=== PATIENT | female | born 1980 | race Caucasian/White ===

== ENCOUNTER 2022-02-06 00:34 | Emergency (ER) | payer BC ==
--- OUTSIDE RECORDS SUMMARY | 2022-02-06 00:36 | XMS REPORT | Continuity of Care Document ---
:1980 Author Organization [facility] Address [facility] [address] [place] [address] Care Team Providers Name Role Phone CERON Attending Clinician Unavailable DHAVAL Attending Clinician Unavailable Problems This patient has no known problems. Allergies, Adverse Reactions, Alerts This patient has no known allergies or adverse reactions. Medications This patient has no known medications. Procedures This patient has no known procedures. Encounters Start End Encounter Admission Attending Care Care Encounter Source Date/Time Date/Time Type Type Clinicians Facility Department ID 2021-05-05 2021-05-[address] [facility] [id number] [place] 00:00:00 00:00:00 AMINA 052 [facility] 2021-04-14 2021-04-14 [facility] [id number] [place] 00:00:00 00:00:00 AMINA 814 [facility] 2021-04-14 2021-04-14 [facility] [id number] [place] 00:00:00 00:00:00 AMINA 751 [facility] 2021-04-08 2021-04-08 [id number] [place] [facility]:00 00:00:00 RAMOS 834 [facility] 2021-04-07 2021-04-07 [facility] [id number] [place] 00:00:00 00:00:00 AMINA 571 Method i 2021-03-27 2021-03-[address] [facility] [id number] [place] 00:00:00 00:00:00 AMINA 731 Method i 2020-12-11 2020-12-11 [facility] [id number] [place] 00:00:00 00:00:00 AMINA 846 Method i 2020-09-25 2020-09-[address] [facility] [id number] [place] 00:00:00 00:00:00 AMINA [address] 2020-08-25 2020-08-[address] [facility] [id number] [place] 00:00:00 00:00:00 AMINA [address] 2020-05-12 2020-05-[address] [facility] [id number] [place] 00:00:00 00:00:00 AMINA [address] Results This patient has no known results.
[2022-02-06 02:21] LABS: Urine Blood Negative (Negative); Urine Glucose Negative (Negative); Urine Protein Negative (Negative)
[2022-02-06 02:51] LABS: Absolute Lymphocytes (CBC) 2.4 K/uL (0.7-4.9); Hematocrit 34.2 % (36.0-45.0); Lymphocytes % 30.7 % (15.3-44.8); MPV 8.6 fL (7.6-11.3); RBC Red Blood Cell Count 3.92 M/uL (3.86-4.86)
[2022-02-06 02:55] LABS: Protime INR 0.98
[2022-02-06 03:10] LABS: Albumin 3.9 g/dL (3.4-5.0); Bilirubin Direct 0.1 mg/dL (0-0.2); Bilirubin Total 0.4 mg/dL (0.2-1.0); Magnesium 2.3 mg/dL (1.8-2.4); Potassium 3.6 mmol/L (3.5-5.1); Protein, Total 7.3 g/dL (6.4-8.2); Troponin High Sensitivity 3.6 pg/mL (<58.9)
--- NOTE | 2022-02-06 04:42 | ER ---
Nurse's Notes [facility] Name: Mirna Bosch Age: 42 yrs Sex: Female : 1980 Arrival Date: 02/06/2022 Time: 00:39 Bed 18 Private MD: Diagnosis: Chest pain, unspecified Presentation: 02/06 01:05 Chief complaint: Patient states: when to the [employer] this week and had an EKG, it kd3 showed irregularities. at 2300 last night I started feeling chest pain and tightness. Pt points to center of sternum. denies radiation. Coronavirus screen: Vaccine status: Patient reports receiving the 2nd dose of the covid vaccine. Ebola Screen: No symptoms or risks identified at this time. Initial Sepsis Screen: Does the patient meet any 2 criteria? No. Patient's initial sepsis screen is negative. Does the patient have a suspected source of infection? No. Patient's initial sepsis screen is negative. Risk Assessment: Do you want to hurt yourself or someone else? Patient reports no desire to harm self or others. Onset of symptoms was February 06, 2022. 01:05 Method Of Arrival: Ambulatory kd3 01:05 Acuity: LTAHA 3 kd3 Triage Assessment: 01:12 General: Appears in no apparent distress. Behavior is calm, cooperative. Pain: kd3 Complains of pain in chest. Cardiovascular: Patient's skin is warm and dry. 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 - Social history:: Smoking status: Patient denies any tobacco usage or history of. Screenin:30 Abuse screen: Denies threats or abuse. Nutritional screening: No deficits noted. vc1 Tuberculosis screening: No symptoms or risk factors identified. Fall Risk None identified. Assessment: 01:30 Pain: Pain does not radiate. Pain began suddenly. vc1 Vital Signs: 01:05 BP 111 / 61; Pulse 71; Resp 16; Temp 98.3; Pulse Ox 100% ; Weight 58.97 kg; Height 5 kd3 ft. 3 in. (160.02 cm); Pain 4/10; 01:05 Body Mass Index 23.03 (58.97 kg, 160.02 cm) kd3 ED Course: 00:39 Patient arrived in ED. bp1 01:12 Triage completed. kd3 01:12 Arm band placed on right wrist. kd3 01:22 Erich Rosado MD is Attending Physician. [facility] 01:30 Client placed on continuous cardiac and pulse oximetry monitoring. NIBP monitoring vc1 applied. 01:30 Patient has correct armband on for positive identification. Bed in low position. Call vc1 light in reach. 02:03 XRAY Chest (1 view) In Process Unspecified. EDVT 02:15 Milena Marquez, RN is Primary Nurse. vc1 04:58 No provider procedures requiring assistance completed. IV discontinued, intact, vc1 bleeding controlled, No redness/swelling at site. Pressure dressing applied. Patient maintains SpO2 saturation greater than 95% on room air. Administered Medications: No medications were administered Medication: 04:59 VIS not applicable for this client. vc1 Outcome: 04:41 Discharge ordered by . [facility] 04:58 Discharged to home ambulatory, with significant other. vc1 04:58 Condition: good 04:58 Discharge instructions given to patient, significant other, Instructed on discharge instructions, follow up and referral plans. Demonstrated understanding of instructions, follow-up care. 04:59 Patient left the ED. vc1 Signatures: Dispatcher [employer] [facility] Dennis[facility]Beth [facility] Erich Rosado MD MD [facility] Salome Gray RN RN [facility] Milena Marquez, JAZMYNE RN vc1
--- NOTE | 2022-02-06 04:42 | EDPHYS ---
Physician Documentation [facility] Name: Mirna Bosch Age: 42 yrs Sex: Female : 1980 Arrival Date: 02/06/2022 Time: 00:39 Bed 18 Private MD: ED Physician Erich Rosado HPI: 02/06 02:00 This 42 yrs old Female presents to ER via Ambulatory with complaints of Chest Pain. mh7 02:00 The patient or guardian reports chest pain that is located primarily in the substernal mh7 area. 02:00 Onset: last night. mh7 02:00 The pain does not radiate. Associated signs and symptoms: Pertinent negatives: mh7 abdominal pain, cough, diaphoresis, dizziness, headache, lower extremity pain, lower extremity swelling, lightheadedness, nausea, near syncope, palpitations, recent travel, shortness of breath, syncope, vomiting. The chest pain is described as tightness. Duration: The patient or guardian reports multiple episodes, that are intermittent, that wax and wane, with no pattern. Modifying factors: The symptoms are alleviated by nothing. the symptoms are aggravated by nothing. Severity of pain: At its worst the pain was moderate last night, in the emergency department the pain has improved markedly. 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 - Social history:: Smoking status: Patient denies any tobacco usage or history of. ROS: 02:00 Constitutional: Negative for fever, chills, and weight loss, Eyes: Negative for injury, mh7 pain, redness, and discharge, ENT: Negative for injury, pain, and discharge, Neck: Negative for injury, pain, and swelling, Respiratory: Negative for shortness of breath, cough, wheezing, and pleuritic chest pain, Abdomen/GI: Negative for abdominal pain, nausea, vomiting, diarrhea, and constipation, Back: Negative for injury and pain, : Negative for injury, bleeding, discharge, and swelling, MS/Extremity: Negative for injury and deformity, Skin: Negative for injury, rash, and discoloration, Neuro: Negative for headache, weakness, numbness, tingling, and seizure, Psych: Negative for depression, anxiety, suicide ideation, homicidal ideation, and hallucinations, Allergy/Immunology: Negative for hives, rash, and allergies, Endocrine: Negative for neck swelling, polydipsia, polyuria, polyphagia, and marked weight changes, Hematologic/Lymphatic: Negative for swollen nodes, abnormal bleeding, and unusual bruising. Exam: 02:00 Constitutional: This is a well developed, well nourished patient who is awake, alert, mh7 and in no acute distress. Head/Face: Normocephalic, atraumatic. Eyes: Pupils equal round and reactive to light, extra-ocular motions intact. Lids and lashes normal. Conjunctiva and sclera are non-icteric and not injected. Cornea within normal limits. Periorbital areas with no swelling, redness, or edema. Neck: Trachea midline, no thyromegaly or masses palpated, and no cervical lymphadenopathy. Supple, full range of motion without nuchal rigidity, or vertebral point tenderness. No Meningismus. Chest/axilla: Normal chest wall appearance and motion. Nontender with no deformity. No lesions are appreciated. Cardiovascular: Regular rate and rhythm with a normal S1 and S2. No gallops, murmurs, or rubs. Normal PMI, no JVD. No pulse deficits. Respiratory: Lungs have equal breath sounds bilaterally, clear to auscultation and percussion. No rales, rhonchi or wheezes noted. No increased work of breathing, no retractions or nasal flaring. Abdomen/GI: Soft, non-tender, with normal bowel sounds. No distension or tympany. No guarding or rebound. No evidence of tenderness throughout. Back: No spinal tenderness. No costovertebral tenderness. Full range of motion. Skin: Warm, dry with normal turgor. Normal color with no rashes, no lesions, and no evidence of cellulitis. MS/ Extremity: Pulses equal, no cyanosis. Neurovascular intact. Full, normal range of motion. Neuro: Awake and alert, GCS 15, oriented to person, place, time, and situation. Cranial nerves II-XII grossly intact. Motor strength 5/5 in all extremities. Sensory grossly intact. Cerebellar exam normal. Normal gait. Psych: Awake, alert, with orientation to person, place and time. Behavior, mood, and affect are within normal limits. Vital Signs: 01:05 BP 111 / 61; Pulse 71; Resp 16; Temp 98.3; Pulse Ox 100% ; Weight 58.97 kg; Height 5 kd3 ft. 3 in. (160.02 cm); Pain 4/10; 01:05 Body Mass Index 23.03 (58.97 kg, 160.02 cm) kd3 MDM: 04:39 Differential diagnosis: acute myocardial infarction, acute pericarditis, anxiety, chest mh7 wall pain, costochondritis, esophagitis, gastritis, gastroesophageal reflux disease (GERD), myocarditis, peptic ulcer disease, pericarditis, pneumonia, pneumothorax, pulmonary embolus. HEART Score: History: Slightly Suspicious (0), ECG: Normal (0), Age: < or = 45 years (0), Risk Factors: No Risk Factors Known (0), Troponin: < or = 1 x Normal Limit (0), Total Score = 0. Data reviewed: vital signs, nurses notes, lab test result(s), cardiac enzymes, CBC, electrolytes, urinalysis, UPT: negative EKG, radiologic studies, plain films. Data interpreted: Pulse oximetry: on room air is 100 %. Interpretation: normal. Counseling: I had a detailed discussion with the patient and/or guardian regarding: the historical points, exam findings, and any diagnostic results supporting the discharge/admit diagnosis, lab results, radiology results, the need for outpatient follow up, to return to the emergency department if symptoms worsen or persist or if there are any questions or concerns that arise at home. Response to treatment: the patient's symptoms have resolved after treatment, the patient's blood pressure is in an acceptable range, mental status has returned to baseline, the patient no longer shows bradycardia, the patient is not short of breath, the patient is not tachycardic, the patient's pain is gone, the patient's temperature has normalized. 04:41 Patient medically screened. [facility] 02/06 01:39 Order name: Basic Metabolic Panel; Complete Time: 03:12 [facility] 02/06 01:39 Order name: CBC with Diff; Complete Time: 03:09 [facility] 02/06 01:39 Order name: D-Dimer; Complete Time: 03:09 [facility] 02/06 01:39 Order name: LFT's; Complete Time: 03:12 [facility] 02/06 01:39 Order name: Magnesium; Complete Time: 03:12 [facility] 02/06 01:39 Order name: NT PRO-BNP; Complete Time: 03:12 [facility] 02/06 01:39 Order name: PT-INR; Complete Time: 03:09 [facility] 02/06 01:39 Order name: Troponin HS; Complete Time: 03:12 [facility] 02/06 01:39 Order name: XRAY Chest (1 view) [facility] 02/06 01:39 Order name: EKG; Complete Time: 01:40 [facility] 02/06 01:39 Order name: Cardiac monitoring; Complete Time: 02:44 [facility] 02/06 01:39 Order name: EKG - Nurse/Tech; Complete Time: 02:16 [facility] 02/06 02:22 Order name: Urine Dipstick-Ancillary; Complete Time: 03:09 [facility] 02/06 02:22 Order name: Urine --Ancillary (enter results); Complete Time: 03:09 [facility] 02/06 01:39 Order name: IV Saline Lock; Complete Time: 02:47 [facility] 02/06 01:39 Order name: Labs collected and sent; Complete Time: 02:52 [facility] 02/06 01:39 Order name: O2 Per Protocol; Complete Time: 02:52 [facility] 02/06 01:39 Order name: O2 Sat Monitoring; Complete Time: 03:04 [facility] 02/06 01:39 Order name: Urine Dipstick-Ancillary (obtain specimen); Complete Time: 02:21 [facility] 02/06 01:39 Order name: Urine Test (obtain specimen); Complete Time: 02:21 [facility] Administered Medications: No medications were administered Disposition Summary: 02/06/22 04:41 Discharge Ordered Location: Home [facility] Problem: new [facility] Symptoms: have improved [facility] Condition: Stable [facility] Diagnosis - Chest pain, unspecified [facility] Followup: [facility] - With: Private Physician - When: 1 - 2 days - Reason: Worsening of condition, Recheck today's complaints, Continuance of care, Re-evaluation by your physician Discharge Instructions: - Discharge Summary Sheet [facility] - Nonspecific Chest Pain, Adult, [id number] [facility] Forms: - Medication Reconciliation Form [facility] - Thank You Letter [facility] - Antibiotic Education mh7 - Prescription Opioid Use [facility] Signatures: Dispatcher [employer] Erich Maria MD MD mh7 Salome Gray RN RN kd3
[2022-02-06 05:06] VITALS: BP 111/61; TEMP 98.3; O2SAT 100
--- NOTE | 2022-02-08 13:42 | RAD REPORT ---
EXAM DESCRIPTION: RAD - Chest Single View - 02/06/2022 2:02 am CLINICAL HISTORY: 42 years, Female, CHEST PAIN COMPARISON: None. FINDINGS: Single view of the chest was obtained portable. No prior films are available for compariso n. The cardiomediastinal silhouette demonstrate to be unremarkable. The heart is not enlarged. The thoracic aorta is unremarkable. Costophrenic angles are sharp. No areas of consolidation or masses are seen. The rest of the soft tissue and bony structures demonstrate to be unremarkable. IMPRESSION: NO ACUTE CARDIOPULMONARY DISEASE SEEN. Electronically signed by: Tan Sosa MD 02/06/2022 2:52 AM CDT Due to temporary technical issues with the PACS/Fluency reporting system, reports are being signed by the in house radiologists without review as a courtesy to insure prompt reporting. The interpreting radiologist is fully responsible for the content of the report.
--- NOTE | 2022-02-09 12:25 | EKG ---
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
== END 2022-02-06 04:59 | disposition home or self-care (01) ==
LOC: ER 00:34
DX: R07.9 Chest pain, unspecified (principal)
CPT/HCPCS: 36415; 71045; 80048; 80076; 81003; 81025; 83735; 83880; 84484; 85025; 85379; 85610; 93005; 99284

== ENCOUNTER 2022-08-09 21:23 | Emergency (ER) | payer BC ==
--- OUTSIDE RECORDS SUMMARY | 2022-08-09 21:26 | XMS REPORT | Continuity of Care Document ---
:1980 Author Organization [facility] t Address [address] [place] [address] Care Team Providers Name Role Phone Asked, No Pcp Primary Care Physician Unavailable AMINA CERON Attending Clinician Unavailable RACHEL PUENTES Attending Clinician Unavailable Problems This patient has no known problems. Allergies, Adverse Reactions, Alerts This patient has no known allergies or adverse reactions. Family History Family Member Diagnosis Comments Start Date Stop Date Source Maternal Cancer [facility] Paternal Cancer [facility] Paternal Breast cancer [facility] Natural sister Miscarriages / [facility] Stillbirths [facility] Social History Social Habit Start Date Stop Date Quantity Comments Source Alcohol intake 2020-12-11 2020-12-11 Current drinker [facility] 00:00:00 00:00:00 of [facility] (finding) Tobacco use and 2020-05-12 2020-05-12 Smokeless tobacco [facility] exposure 00:00:00 00:00:00 non-user Hospital Sex [facility]igned At [birth year] [facility] Smoking Status Start Date Stop Date Source Never smoked tobacco [facility] Medications Ordered Filled Start Stop Current Ordering Indication Dosage Frequency Signature Comments Components Source Medication Medication Date Date Medication? Clinician (SIG) Name Name fluticasone Yes 50ug 50 mcg [facility] hom[facility] propionate 8-[address] (FLONASE) 12:46: nostril. Hosp cy 50 09 l mcg/actuati on nasal spray multivitami Yes 1{tbl} Take 1 Me th[facility] n 8-[address] (THERAGRAN) 12:46: mouth. Hosp cy tablet 09 l cetirizine- Yes Zyrtec-D Me [facility]odi pseudoepHED 8-24 [facility] 12:46: Hospita (ZyrTEC-D) 09 l 5-120 mg per 12 hr tablet Immunizations Ordered Immunization Filled Immunization Date Status Commen ts Source Name Name Gardasil-9 2021-04-08 Completed [facility] Tdap 2017-11-25 Completed [facility] Procedures This patient has no known procedures. Plan of Care Planned Activity Planned Date Details Comments Source Future Scheduled 2022-08-09 HEPATITIS B [facility] Test 21:25:29 VACCINES (1 of 3 - 3-dose series) [code = HEPATITIS B VACCINES (1 of 3 - 3-dose series)] Future Scheduled 2022-08-09 COVID-[facility]ACCINE [facility] Test 21:25:29 (#1) [code = COVID-19 VACCINE (#1)] Future Scheduled 2022-08-09 Hepatitis C [facility] 21:25:29 screening (procedure) [code = 462053678] Future Scheduled 2022-08-09 BREAST CANCER [facility] Test 21:25:29 SCREENING [code = BREAST CANCER SCREENING] Future Scheduled 2022-08-09 INFLUENZA VACCINE [facility] Test 21:25:29 [code = INFLUENZA VACCINE] Future Scheduled 2022-08-09 Screening for [facility] Test 21:25:29 malignant neoplasm of cervix (procedure) [code = 342731726] Encounters Start End Encounter Admission Attending Care Care Encounter Source Date/Time Date/Time Type Type Clinicians Facility Department ID 2021-05-05 2021-05-05 Outpatient [facility] [id number] [place] 00:00:00 00:00:00 AMINA 052 [facility] i 2021-04-14 2021-04-14 Outpatient [facility] [id number] [place] 00:00:00 00:00:00 AMINA [address] 2021-04-14 2021-04-14 Outpatient [facility] [id number] [place] 00:00:00 00:00:00 AMINA [address] 2021-04-08 2021-04-08 Outpatient DHAVAL, [facility] [id number] [place] 00:00:00 00:00:00 RAMOS [address] 2021-04-07 2021-04-07 Outpatient CERON, [facility] [id number] [place] 00:00:00 00:00:00 AMINA [address] 2021-03-27 2021-03-27 Outpatient CERON, [facility] [id number] [place] 00:00:00 00:00:00 AMINA [address] 2020-12-11 2020-12-11 Outpatient CERON, [facility] [id number] [place] 00:00:00 00:00:00 AMINA [address] 2020-09-25 2020-09-25 Outpatient CERON, [facility] [id number] [place] 00:00:00 00:00:00 AMINA [address] 2020-08-25 2020-08-25 Outpatient CERON, [facility] [id number] [place] 00:00:00 00:00:00 AMINA [address] 2020-05-12 2020-05-12 Outpatient CERON, [facility] [id number] [place] 00:00:00 00:00:00 AMINA [address] Results This patient has no known results.
[2022-08-09 22:36] LABS: Urine Blood 3+ (Negative); Urine Glucose Negative (Negative); Urine Protein Negative (Negative)
[2022-08-09 22:57] LABS: Absolute Lymphocytes (CBC) 2.8 K/uL (0.7-4.9); Hematocrit 34.3 % (36.0-45.0); Lymphocytes % 27.1 % (15.3-44.8); MCV 87.7 fL (80-100); RBC Red Blood Cell Count 3.92 M/uL (3.86-4.86)
[2022-08-09 23:20] LABS: Urine Mucus Slight /HPF (None Seen); Urine RBC >50 /HPF (None Seen)
[2022-08-09 23:29] LABS: Potassium 3.6 mmol/L (3.5-5.1)
--- NOTE | 2022-08-10 00:47 | ER ---
Nurse's Notes [facility] [place] Name: Mirna Bosch Age: 42 yrs Sex: Female : 1980 Arrival Date: 08/09/2022 Time: 21:25 Bed 7 Private MD: Diagnosis: Threatened Presentation: 08/09 21:28 Chief complaint: Patient states: "It started off as back pain, then moved to abdominal tw5 pain, and now I am bleeding. I was suppose to have my first ultrasound tomorrow.". Coronavirus screen: Vaccine status: Patient reports receiving the 2nd dose of the covid vaccine. Moderna. Ebola Screen: Patient negative for fever greater than or equal to 101.5 degrees Fahrenheit, and additional compatible Ebola Virus Disease symptoms Patient denies exposure to infectious person. Patient denies travel to an Ebola-affected area in the 21 days before illness onset. Initial Sepsis Screen: Does the patient meet any 2 criteria? No. Patient's initial sepsis screen is negative. Does the patient have a suspected source of infection? Yes: Acute abdominal pain. Initial Sepsis Screen: Does the patient meet any 2 criteria?. Risk Assessment: Do you want to hurt yourself or someone else? Patient reports no desire to harm self or others. Onset of symptoms was August 09, 2022 at 18:00. 21:28 Method Of Arrival: Ambulatory tw5 21:28 Acuity: LATHA 3 tw5 Triage Assessment: 21:30 General: Appears uncomfortable, Behavior is calm, cooperative, appropriate for age, tw5 crying. Pain: Complains of pain in suprapubic area Pain currently is 8 out of 10 on a pain scale. : Reports vaginal bleeding that is bright red, with clots. 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 - Social history:: Smoking status: Patient denies any tobacco usage or history of. - Family history:: not pertinent. Screenin:42 Abuse screen: Denies threats or abuse. Denies injuries from another. Nutritional as6 screening: No deficits noted. Tuberculosis screening: No symptoms or risk factors identified. Fall Risk None identified. Assessment: 22:41 General: Appears in no apparent distress. Behavior is calm, cooperative. Pain: as6 Complains of pain in suprapubic area Quality of pain is described as crampy. Neuro: Level of Consciousness is awake, alert, obeys commands. Respiratory: Respiratory effort is even, unlabored. : Reports pain in suprapubic area vaginal bleeding that is. Vital Signs: 21:28 BP 119 / 59; Pulse 94; Resp 18; Temp 99.4; Pulse Ox 99% on R/A; Weight 58.97 kg; Height tw5 5 ft. 4 in. (162.56 cm); Pain 8/10; 22:43 BP 106 / 65; Pulse 77; Resp 18 S; Pulse Ox 100% on R/A; as6 08/10 00:48 BP 111 / 60; Pulse 78; Resp 16 S; Pulse Ox 100% on R/A; as6 08/09 21:28 Body Mass Index 22.31 (58.97 kg, 162.56 cm) tw5 ED Course: 08/09 21:25 Patient arrived in ED. mr 21:30 Triage completed. tw5 21:30 Arm band placed on. tw5 21:38 Lalit Fleming MD is Attending Physician. rt 22:02 Joel Garcia, JAZMYNE is Primary Nurse. as6 22:41 Inserted saline lock: 18 gauge in right antecubital area, using aseptic technique. as6 Blood collected. 22:42 Bed in low position. Call light in reach. Side rails up X 1. as6 23:21 US Transvaginal Ob In Process Unspecified. EDMS 08/10 00:48 No provider procedures requiring assistance completed. as6 00:54 IV discontinued, intact, bleeding controlled, No redness/swelling at site. Pressure as6 dressing applied. Administered Medications: No medications were administered Medication: 08/09 22:42 VIS not applicable for this client. as6 Outcome: 08/10 00:47 Discharge ordered by . rt 00:49 Discharged to home ambulatory, with significant other. as6 00:49 Condition: stable 00:53 Discharge instructions given to patient, Instructed on discharge instructions, follow as6 up and referral plans. Demonstrated understanding of instructions, follow-up care. 00:54 Patient left the ED. as6 Signatures: Dispatcher [employer] KASANDRA McmillanChary moscoso mr Guido Chrissy tw5 Joel Garcia RN RN as6 Lalit Fleming MD MD rt
--- NOTE | 2022-08-10 00:47 | EDPHYS ---
Physician Documentation [facility] Name: iMrna Bosch Age: 42 yrs Sex: Female : 1980 Arrival Date: 08/09/2022 Time: 21:25 Bed 7 Private MD: ED Physician Lalit Fleming HPI: 08/09 22:20 This 42 yrs old Female presents to ER via Ambulatory with complaints of Vaginal rt Bleeding, + Preg <12wks. 22:20 The patient presents to the emergency department with vaginal bleeding, that is light. rt The estimated gestational age is 8 weeks. Previous pregnancies: the patient has never been . Associated signs and symptoms: Pertinent positives: abdominal pain. Patient who is about 8 weeks , due to have her confirmatory ultrasound tomorrow presents to the ED with abdominal cramping, vaginal bleeding with clot passage, less than menstruation after having intercourse. The patient reports a urinary frequency but denies other acute complaints at this time. Symptoms are moderate in severity, no other aggravating alleviating factors.. 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 - Social history:: Smoking status: Patient denies any tobacco usage or history of. - Family history:: not pertinent. ROS: 22:20 Constitutional: Negative for fever, chills, and weight loss, Eyes: Negative for injury, rt pain, redness, and discharge, Neck: Negative for injury, pain, and swelling, Cardiovascular: Negative for chest pain, palpitations, and edema, Respiratory: Negative for shortness of breath, cough, wheezing, and pleuritic chest pain, MS/Extremity: Negative for injury and deformity, Skin: Negative for injury, rash, and discoloration, Neuro: Negative for headache, weakness, numbness, tingling, and seizure, Psych: Negative for depression, anxiety, suicide ideation, homicidal ideation, and hallucinations. 22:20 Abdomen/GI: Positive for abdominal pain, Negative for nausea and vomiting. 22:20 : Positive for urinary frequency, vaginal bleeding. Exam: 22:20 Constitutional: This is a well developed, well nourished patient who is awake, alert, rt and in no acute distress. Head/Face: Normocephalic, atraumatic. Eyes: Pupils equal round and reactive to light, extra-ocular motions intact. Lids and lashes normal. Conjunctiva and sclera are non-icteric and not injected. Cornea within normal limits. Periorbital areas with no swelling, redness, or edema. ENT: Nares patent. No nasal discharge, no septal abnormalities noted. Tympanic membranes are normal and external auditory canals are clear. Oropharynx with no redness, swelling, or masses, exudates, or evidence of obstruction, uvula midline. Mucous membranes moist. Neck: Trachea midline, no thyromegaly or masses palpated, and no cervical lymphadenopathy. Supple, full range of motion without nuchal rigidity, or vertebral point tenderness. No Meningismus. Chest/axilla: Normal chest wall appearance and motion. Nontender with no deformity. No lesions are appreciated. Cardiovascular: Regular rate and rhythm with a normal S1 and S2. No gallops, murmurs, or rubs. Normal PMI, no JVD. No pulse deficits. Respiratory: Lungs have equal breath sounds bilaterally, clear to auscultation and percussion. No rales, rhonchi or wheezes noted. No increased work of breathing, no retractions or nasal flaring. Abdomen/GI: Soft, non-tender, with normal bowel sounds. No distension or tympany. No guarding or rebound. No evidence of tenderness throughout. Skin: Warm, dry with normal turgor. Normal color with no rashes, no lesions, and no evidence of cellulitis. MS/ Extremity: Pulses equal, no cyanosis. Neurovascular intact. Full, normal range of motion. Neuro: Awake and alert, GCS 15, oriented to person, place, time, and situation. Cranial nerves II-XII grossly intact. Motor strength 5/5 in all extremities. Sensory grossly intact. Cerebellar exam normal. Normal gait. Psych: Awake, alert, with orientation to person, place and time. Behavior, mood, and affect are within normal limits. Vital Signs: 21:28 BP 119 / 59; Pulse 94; Resp 18; Temp 99.4; Pulse Ox 99% on R/A; Weight 58.97 kg; Height tw5 5 ft. 4 in. (162.56 cm); Pain 8/10; 22:43 BP 106 / 65; Pulse 77; Resp 18 S; Pulse Ox 100% on R/A; as6 08/10 00:48 BP 111 / 60; Pulse 78; Resp 16 S; Pulse Ox 100% on R/A; as6 08/09 21:28 Body Mass Index 22.31 (58.97 kg, 162.56 cm) tw5 MDM: 08/09 22:00 Patient medically screened. rt 08/09 22:16 Order name: CBC with Diff; Complete Time: 00:38 rt 08/09 22:16 Order name: Abo/rh Typing; Complete Time: 00:38 rt 08/09 22:16 Order name: Basic Metabolic Panel; Complete Time: 00:38 rt 08/09 22:16 Order name: CBC with Diff rt 08/09 22:16 Order name: Quantitative Hcg; Complete Time: 00:38 rt 08/09 22:16 Order name: UA MICROSCOPIC; Complete Time: 00:38 rt 08/09 22:16 Order name: US Transvaginal Ob rt 08/09 22:16 Order name: Labs collected and sent; Complete Time: 22:41 rt 08/09 22:16 Order name: NPO; Complete Time: 22:17 rt 08/09 22:16 Order name: Urine Dipstick-Ancillary (obtain specimen); Complete Time: 22:37 rt 08/09 22:16 Order name: Urine Test (obtain specimen); Complete Time: 22:37 rt 08/09 22:36 Order name: Urine Dipstick-Ancillary; Complete Time: 00:38 EDMS 08/09 22:36 Order name: Urine --Ancillary (enter results); Complete Time: 00:38 mw2 08/09 23:23 Order name: Urine Culture EDMS Administered Medications: No medications were administered Disposition Summary: 08/10/22 00:47 Discharge Ordered Location: Home rt Problem: new rt Symptoms: are unchanged rt Condition: Stable rt Diagnosis - Threatened rt Followup: rt - With: Private Physician - When: Tomorrow - Reason: Discharge Instructions: - Discharge Summary Sheet rt - Vaginal Bleeding During , First Trimester rt Forms: - Medication Reconciliation Form rt - Thank You Letter rt - Antibiotic Education rt - Prescription Opioid Use rt Signatures: Dispatcher [employer] Chrissy Ernst tw5 Lalit Fleming MD MD rt
[2022-08-10 01:13] VITALS: TEMP 99.4
[2022-08-10 01:19] VITALS: O2SAT 100
[2022-08-10 01:25] VITALS: BP 111/60
--- NOTE | 2022-08-10 10:56 | RAD REPORT ---
EXAM DESCRIPTION: US - Transvaginal OB - 08/09/2022 11:20 pm CLINICAL HISTORY: The patient is 42 years old and is Female; VAGINAL BLEEDING TECHNIQUE: Real-time transvaginal obstetrical ultrasound of the maternal pelvis and a first trimeste r with image documentation. Transvaginal imaging was used for better evaluation of the fe tus and adnexa. COMPARISON: No relevant prior studies available. FINDINGS: GESTATION: A single intrauterine gestational sac correlating to approximately 5 weeks 3 days is present. No pole or yolk sac are seen. PLACENTA/AMNIOTIC FLUID: Cannot be adequately evaluated due to the early gestational age. UTERUS/CERVIX: Unremarkable. No myometrial mass. OVARIES: The right ovary is normal. Normal arterial and venous color Doppler and spectral wavefor m is present. The left ovary is not visualized secondary to bowel gas. FREE FLUID: No free fluid. IMPRESSION: Single intrauterine gestational sac correlating to approximately 5 weeks 3 days. A pole and yolk sac are not visualized. Findings suggest a very early intrauterine . Recommen d continued follow-up with serial hCG and ultrasound. Electronically signed by: Ekta Montgomery MD 08/09/2022 11:55 PM HOSPICE EDUCATOR Due to temporary technical issues with the PACS/Fluency reporting system, reports are being signed by the in house radiologists without review as a courtesy to insure prompt reporting. The interpreting radiologist is fully responsible for the content of the report.
== END 2022-08-10 00:54 | disposition home or self-care (01) ==
LOC: ER 21:23
DX: O20.0 Threatened abortion (principal)
CPT/HCPCS: 36415; 76817; 80048; 81003; 81015; 81025; 84702; 85025; 86900; 86901; 87077; 87086; 87088; 87186; 99283